=== PATIENT | female | born 1960 | race African-American/Black ===

== ENCOUNTER 2018-12-11 15:37 | Emergency (ER) | payer OTHER ==
[2018-12-11] MEDS: IPRATROPIUM (NEB) 0.5 MG/2.5 ML AMP INH (18:33)
[2018-12-11] MEDS: ALBUTEROL 0.083% (NEB) 2.5 MG/3 ML AMP INH (18:33)
[2018-12-11] MEDS: DEXAMETHASONE 10 MG/ML 1 ML INJ IV (20:39)
== END 2018-12-11 20:50 | disposition home or self-care (01) ==
LOC: FTE 15:37 → E/R 20:50
DX: J20.9 Acute bronchitis, unspecified (principal); I10 Essential (primary) hypertension; F17.210 Nicotine dependence, cigarettes, uncomplicated; J45.909 Unspecified asthma, uncomplicated; Z79.82 Long term (current) use of aspirin
CPT/HCPCS: 71045; 93005; 94664; 96374; 99284-25